=== PATIENT | female | born 1935 | race African-American/Black ===

== ENCOUNTER 2024-06-23 14:30 | Emergency (ER) | payer BC, MEDICARE ==
[~2024-06-23] VITALS: Ht 167.6 cm; Wt 93.0 kg
[~2024-06-23 14:30] MED LIST: ASPI-1406 MT; HYDR25TA MT; LEVO-65 MT; LEVO75TA7 MT; LIP40 MT; LISI40TA13 MT; MONT-39 MT; NIFE90TA60 MT
[2024-06-23 14:32] VITALS: O2SAT 98
[2024-06-23] MEDS: SODIUM CHLORIDE 0.9% 1,000 ML IV ONE (14:57)
[2024-06-23] MEDS: ONDANSETRON HCL 4MG/2ML INJ IV STA (14:57)
[2024-06-23 15:19] LABS: CHLORIDE 106 mEq/L (98-107); POTASSIUM 3.3 mEq/L (3.5-5.1); SODIUM 139 mEq/L (136-145)
[2024-06-23 15:20] LABS: CALCIUM 9.9 mg/dL (8.7-10.4); CARBON DIOXIDE 22 mEq/L (21-32)
[2024-06-23 15:25] LABS: CREATININE 1.2 mg/dL (0.6-1.0); GLUCOSE 150 mg/dL (70-105); UREA NITROGEN BLOOD 19 mg/dL (9-23)
[2024-06-23 15:26] LABS: TROPONIN I HIGH SENSITIVITY 16 ng/L (3.0-34)
[2024-06-23 15:30] LABS: BASOPHILS % 0.4 % (0.0-2.0); DIFFERENTIAL COMMENT 0; EOSINOPHILS % 1.7 % (0.0-5.0); HEMATOCRIT. 43.1 % (36.0-48.0); HEMOGLOBIN. 13.3 g/dL (12.0-16.0); MEAN CORPUSCULAR HEMOGLOBIN 27.4 pg (28.0-32.0); MEAN CORPUSCULAR HGB CONC 30.8 g/dL (31.0-37.0); MEAN PLATELET VOLUME 7.9 fl (7.4-10.4); MONOCYTES % 5.6 % (2.0-8.0); NEUTROPHILS % 71.3 % (40.0-76.0); PLATELET 253 x1000/uL (130-400); PROTHROMBIN TIME 10.5 sec (9.6-11.0); RED BLOOD CELL COUNT 4.84 mill/uL (4.2-5.4); RED CELL DISTRIBUTION WIDTH 15.8 % (11.6-14.6)
[2024-06-23 15:41] LABS: LACTIC ACID 2.5 mmol/L (0.4-2.0)
[2024-06-23 17:55] LABS: TROPONIN I HIGH SENSITIVITY 15 ng/L (3.0-34)
[2024-06-23 18:15] VITALS: BP 154/88; PULSE 75; RESP 16; TEMP 36.7; O2SAT 97
[2024-06-24] MEDS ORDERED: BUDE6HFA INH (19:11)
[2024-06-24] MEDS ORDERED: EZET10TA81 PO (19:11)
[2024-06-24] MEDS ORDERED: TEMA15CA PO (19:11)
[2024-06-24] MEDS ORDERED: CLOP-31 PO (19:11)
[2024-06-24] MEDS ORDERED: METH4TAB17 PO (19:11)
== END 2024-06-23 18:16 | disposition home or self-care (01) ==
LOC: ER 14:54 → EDBEDREQ 15:02 → ER 18:16
DX: R55 Syncope and collapse (principal); I10 Essential (primary) hypertension; J45.909 Unspecified asthma, uncomplicated; Z79.82 Long term (current) use of aspirin; Z79.890 Hormone replacement therapy; Z79.899 Other long term (current) drug therapy; Z88.5 Allergy status to narcotic agent
CPT/HCPCS: 99285; 96374; 96361; 80048; 83605; 83690; 85025; 85610; 84484; 36415; 93005; J2405; J7030